=== PATIENT | female | born 1985 | race Caucasian/White ===

== ENCOUNTER 2020-07-21 19:49 | Emergency (ER) | payer OTHER ==
[2020-07-21 20:16] LABS: Bilirubin Negative (Negative); Blood, Urine Negative (Negative); Clarity Extra Turbid (Clear); Glucose, Urine (Dipstick) Normal (Negative); Ketone, Urine Negative (Negative); Leukocyte Negative Leu/uL (Negative); Nitrite Negative (Negative); Protein, Urine (Dipstick) Negative (Neg-Trace); Specific Gravity, Urine 1.015 (1.002-1.036); Urobilinogen Normal mg/dL (Less than 2)
[2020-07-21 20:18] LABS: Pregnancy Test - Urine (BHCG) POSITIVE (Negative); Pregu Control Background? CLEAR/WHITE (CLR/WHITE); Pregu Control Bar Appear? YES (CONTROL BAR); Specific Gravity 1.015 (1.002-1.036)
[2020-07-21 21:44] LABS: #Basophils 0.1 thou/uL (0.0-0.2); #Lymphocytes 1.6 thou/uL (1.20-3.40); #Monocytes 0.8 thou/uL (0.11-0.59); #Neutrophils 10.2 thou/uL (1.40-6.50); %Basophils 0.5 % (0.0-1.0); %Eosinophils 0.3 % (0.0-10.0); %Lymphocytes 12.8 % (21.0-51.0); %Neutrophils 80.4 % (42.0-75.0); Hemoglobin 11.2 g/dL (12.0-16.0); Mean Corpuscular HGB CONC 34.4 g/dL (32.0-36.0); Mean Corpuscular Hemoglobin 31.8 pg (27.0-31.0); Mean Corpuscular Volume 92.4 fL (78.0-98.0); Mean Platelet Volume 8.4 fL (7.4-10.4); Platelet Count 187 thou/uL (130-400); RBC Distribution Width 11.7 % (11.5-14.5); Red Blood Cell (RBC) Count 3.53 mill/uL (4.20-5.40); White Blood Cell (WBC) Count 12.7 thou/uL (4.8-10.8)
[2020-07-21 22:05] LABS: ALT (SGPT) 17 U/L (8-55); AST (SGOT) 22 U/L (5-34); Albumin 3.8 g/dL (3.5-5.0); Alkaline Phosphatase 60 U/L (40-110); Anion Gap 13 mmol/L (10-20); BUN (Urea Nitrogen) 13 mg/dL (7.0-18.7); Bilirubin, Total 0.6 mg/dL (0.2-1.2); Calc. Creatinine Clearance 0 mL/min (70-130); Calcium 10.1 mg/dL (7.8-10.44); Carbon Dioxide 26 mmol/L (22-29); Chloride 102 mmol/L (98-107); Estimated GFR-MDRD 86; Globulin 2.7 g/dL (2.4-3.5); Glucose 104 mg/dL (70-105); Lipase 17 U/L (8-78); Potassium 3.5 mmol/L (3.5-5.1); Protein, Total 6.5 g/dL (6.0-8.3); Sodium 137 mmol/L (136-145)
[2020-07-21] MEDS ORDERED: Morphine 4 MG/ML VIAL ONE (22:05)
[2020-07-21] MEDS ORDERED: Ondansetron PF 4 MG/2 ML Vial ONE (22:05)
--- NOTE | 2020-07-21 22:37 | ULT ---
TRANSABDOMINAL TRANSVAGINAL PELVIC ULTRASOUND DATE:: 07/21/2020 8:57 PM CLINICAL HISTORY: Left lower quadrant abdominal pain with spotting and history of dilatation with cur ettage on July 04, 2020. COMPARISON: None. TECHNIQUE: Grayscale, color Doppler and spectral Doppler images were obtained of the pelvis utilizing a transabdominal and transvaginal approach FINDINGS: UTERUS: Size: 9.5 x 4.1 x 4.9 cm Mass: None Cervix: Within normal limits Endometrial Thickness: 15.5 mm. There are vascularized retained products of conception filling the e ndometrial canal. RIGHT OVARY: 3.0 x 1.9 x 1.7 cm. Mass: There is a 1.4 cm follicular cyst within the right ovary.. Flow: Normal LEFT OVARY: 1.8 x 1.1 x 1.3 cm. Mass: There is a 1.8 cm follicular cyst within the left ovary.. Flow: Normal CUL-DE-SAC: No free fluid IMPRESSION: Findings of retained products of conception within the endometrial canal. Bilateral follicular cysts.
--- NOTE | 2020-07-22 02:09 | CON ---
DATE OF CONSULTATION: 07/22/2020 REQUESTING PHYSICIAN: Drew Ryan MD. ER PHYSICIAN/CONSULTING PHYSICIAN: Heber Cummings MD CHIEF COMPLAINT: Lower abdominal discomfort. HISTORY OF PRESENT ILLNESS: Ms. Wilkinson is a 35-year-old white G1, now AB1, who is status post D and E in [place] by Dr. Peterson with [facility] for what is described as a Down syndrome demise. She states that she had this done on July 04 and had done well with only a small amount of spotting until the onset of discomfort this evening. Evaluation in the ER shows no significant nodes shows no significant bleeding. No adnexal masses, but there is what appears to be retained placental tissues seen. Her OB doctor in the [facility] area is Dr. Hassan. PAST MEDICAL HISTORY: None. PAST SURGICAL HISTORY: D and E as above as well as tonsillectomy. CURRENT MEDICATIONS: None. ALLERGIES: NO KNOWN ALLERGIES. SOCIAL HISTORY: Denies tobacco, alcohol, or drug use. FAMILY HISTORY: Unremarkable. REVIEW OF SYSTEMS: Denies nausea, vomiting, fever, or chills. PHYSICAL EXAMINATION: VITAL SIGNS: 99/58. Pulse is 74. She is afebrile. GENERAL: She is in no distress. ABDOMEN: Soft and nontender. PELVIC: Deferred. ASSESSMENT: Status post dilation and evacuation 2 weeks ago, now with possible retained products of conception. PLAN: I did discuss this case with Dr. Hassan by phone. She is not acutely bleeding at this time. He has asked that we treat her with clindamycin 300 mg b.i.d. for seven days and that she will be able to follow up with him in the morning to re-evaluate and to decide whether he would need to do a D and C for her. I did review this with the patient in detail and she is agreeable to this plan. Precautions were given and she was sent home in good condition. Job ID: [id number]
== END 2020-07-22 01:07 | disposition home or self-care (01) ==
LOC: ERS 19:49
DX: O02.1 Missed abortion (principal)
CPT/HCPCS: 36415; 76856; 80053; 81003; 81025; 83690; 84702; 85025; 86900; 86901; 87086; 96374; 96375; J2270; J2405